=== PATIENT | male | born 1950 | race Native Hawaiian/Other Pacific Islander ===

== ENCOUNTER 2017-06-30 08:30 | Emergency (ER) | payer MEDICARE, BC ==
[2017-06-30] MEDS: HYDROCODONE/APAP 5/325MG TABLET PO ONE (09:21)
--- NOTE | 2017-06-30 09:42 | Emergency Department Record ---
History of Present Illness - General Chief complaint: Pain Stated complaint: LEFT KNEE PAIN/CHRONIC Time Seen by Provider: 06/30/17 08:59 Source: Patient Mode of Arrival: Ambulatory Limitations: No limitations - History of Present Illness Initial comments: pt has pain and swelling of knee and pain in calf and thigh that kept him awake all night. he was extra active over the weekend and has known oa of knee MD Complaint: Extremity pain, Joint pain, Joint swelling Onset/Timin -: Days(s) Location: Left, Knee History of Same: Yes Radiation: Proximal, Distal Severity scale (1-10): 7 Quality: Aching, Other Consistency: Constant Associated Symptoms: Denies other symptoms - Related Data Home Medications Medication Instructions Recorded Confirmed Last Taken Indomethacin [Indocin] 50 mg PO TID 06/30/17 06/30/17 06/30/17 Previous Rx's Medication Instructions Recorded Hydrocodone/Acetaminophen [[place] 1 each PO Q6HR #7 tablet 06/30/17 5-325 Tablet] Allergies Allergy/AdvReac Type Severity Reaction Status Date / Time No Known Drug Allergies Allergy Verified 06/30/17 08:44 Travel Screening - Travel/Exposure Within Last 30 Days Have you traveled within the last 30 days?: Yes Location Detail:: [place] - Travel/Exposure Within Last Year Have you traveled outside the [place] in the last year?: No - Additonal Travel Details Have you been exposed to anyone with a communicable illness?: No - Travel Symptoms Symptom Screening: None Review of Systems Reviewed: No additional complaints except as noted below Constitutional: Reports: As per HPI. Denies: Chills, Fever, Malaise, Night sweats, Weakness, Weight change Eyes: Reports: As per HPI. Denies: Eye discharge, Eye pain, Photophobia, Vision change ENT: Reports: As per HPI. Denies: Congestion, Dental pain, Ear pain, Epistaxis , Hearing loss, Throat pain Respiratory: Reports: As per HPI. Denies: Cough, Dyspnea, Hemoptysis, Stridor, Wheezes Cardiovascular: Reports: As per HPI. Denies: Arrhythmia, Chest pain, Dyspnea on exertion, Edema, Murmurs, Orthopnea, Palpitations, Paroxysmal nocturnal dyspnea, Rheumatic Fever, Syncope Endocrine: Reports: As per HPI. Denies: Fatigue, Heat or cold intolerance, Polydipsia, Polyuria Gastrointestinal: Reports: As per HPI. Denies: Abdominal pain, Constipation, Diarrhea, Hematemesis, Hematochezia, Melena, Nausea, Vomiting Genitourinary: Reports: As per HPI. Denies: Dysuria, Frequency, Hematuria, Incontinence, Retention, Testicular pain, Testicular mass, Urgency Musculoskeletal: Reports: As per HPI, Joint swelling. Denies: Arthralgia, Back pain, Gout, Myalgia, Neck pain Skin: Reports: As per HPI. Denies: Bruising, Change in color, Change in hair/ nails, Lesions, Pruritus, Rash Neurological: Reports: As per HPI. Denies: Abnormal gait, Confusion, Headache, Numbness, Paresthesias, Seizure, Tingling, Tremors, Vertigo, Weakness Psychiatric: Reports: As per HPI. Denies: Anxiety, Auditory hallucinations, Depression, Homicidal thoughts, Suicidal thoughts, Visual hallucinations Hematological/Lymphatic: Reports: As per HPI. 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 Castorena; - NEURO Hx Neuro Disorders: No - GI Hx GI Disorders: Yes Hx of Polyps: Yes Comment:: sensitive to high fat foods; esophageal spasm?? - Hx Genitourinary Disorders: No - ENDOCRINE Hx Endocrine Disorders: No - MUSCULOSKELETAL Hx Musculoskeletal Disorders: Yes Hx Arthritis: Yes (oa) Hx Gout: Yes Hx Osteoporosis: Yes - PSYCH Hx Psych Problems: No - HEMATOLOGY/ONCOLOGY Hx Hematology/Oncology Disorders: No Family Medical History Any Significant Family History?: No Hx Cancer: Mother *Cancer Comment: bladder/colon/stomach Hx Heart Disease: Father, Grandparents *Heart Comment: paternal Hx HTN: Father Hx Stroke: Father Physical Exam - General General Appearance: Alert, Oriented x3, Cooperative, Mild distress - Head Head exam: Normal inspection - Eye Eye exam: Normal appearance, PERRL, EOMI Pupils: Normal accommodation - ENT ENT exam: Normal exam, Mucous membranes moist, Normal external ear exam, Normal orophraynx Ear exam: Normal external inspection. negative: External canal tenderness Nasal Exam: Normal inspection. negative: Discharge, Sinus tenderness Mouth exam: Normal external inspection, Tongue normal Teeth exam: Normal inspection. negative: Dental caries Throat exam: Normal inspection. negative: Tonsillar erythema, Tonsillar exudate - Neck Neck exam: Normal inspection, Full ROM. negative: Tenderness - Respiratory Respiratory exam: Normal lung sounds bilaterally. negative: Respiratory distress - Cardiovascular Cardiovascular Exam: Regular rate, Normal rhythm, Normal heart sounds - GI/Abdominal GI/Abdominal exam: Soft, Normal bowel sounds. negative: Tenderness - Rectal Rectal exam: Deferred - exam: Deferred - Extremities Extremities exam: Calf tenderness, Joint swelling, Normal capillary refill, Tenderness. negative: Full ROM - Back Back exam: Reports: Normal inspection, Full ROM. Denies: Muscle spasm, Rash noted, Tenderness - Neurological Neurological exam: Alert, CN II-XII intact, Normal gait, Oriented X3 - Psychiatric Psychiatric exam: Normal affect, Normal mood - Skin Skin exam: Dry, Intact, Normal color, Warm Course Vital Signs 06/30/17 08:32 Temperature 97.6 F Pulse Rate 60 Respiratory 16 Rate Blood Pressure 137/87 Pulse Ox 97 - Reevaluation(s) Reevaluation #1: 06/30/17 10:53 pt feels better Disposition Disposition: Discharge Clinical Impression: Knee joint effusion Qualifiers: Laterality: left Qualified Code(s): M25.462 - Effusion, left knee Disposition: Home, Self-Care Condition: (1) Good Instructions: Swollen Knee Joint (ED), Osteoarthritis (ED) Additional Instructions: follow up with dr diaz. return sooner if worse. elevate and ice Prescriptions: Hydrocodone/Acetaminophen [[place] 5-325 Tablet] 1 each PO Q6HR #7 tablet Referrals: GORGE DIAZ [DOCTOR OF OSTEOPATH] - [facility] [Provider Group] Forms: Patient Portal Access Quality - Quality Measures Quality Measures: N/A - Blood Pressure Screening Does Patient Have Any of the Following: No Blood Pressure Classification: Pre-Hypertensive BP Reading Systolic Measurement: 137 Diastolic Measurement: 87 Screening for High Blood Pressure: < Pre-Hypertensive BP, F/U Documented > [ G8950] Pre-Hypertensive Follow-up Interventions: Follow-up with rescreen every year.
--- NOTE | 2017-06-30 15:18 | RADIOLOGY REPORT ---
EXAM: LEFT KNEE HISTORY: KNEE PAIN. TECHNIQUE: Four views of the left knee were obtained. Comparison: None. Encounter: Initial. FINDINGS: Osteopenia. Negative for fracture or dislocation. Mild to moderate tricompartmental degenerative change. Chondrocalcinosis. Probable small joint effusion with mild prepatellar edema. IMPRESSION: OSTEOPENIA WITH TRICOMPARTMENTAL DEGENERATIVE CHANGE AND CHONDROCALCINOSIS. MILD PREPATELLAR EDEMA. SMALL JOINT EFFUSION. JOB NUMBER: [id number] MTDD
--- NOTE | 2017-06-30 15:26 | US VENOUS DOPPLER REPORT ---
EXAM: LEFT LOWER EXTREMITY DUPLEX VENOUS DOPPLER ULTRASOUND HISTORY: PAIN AND SWELLING. TECHNIQUE: Transverse and longitudinal sonographic images of the left lower extremity deep venous system were obtained. Doppler and spectral analysis with color flow was utilized. Comparison: Plain films from today's date. FINDINGS: Imaging shows no visible areas of thrombus formation. Normal compression and augmentation. 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 Doppler and spectral analysis with color flow shows normal waveforms. IMPRESSION: 1. NEGATIVE FOR DVT. 2. PROBABLE POPLITEAL CYST. JOB NUMBER: [id number] [facility]
== END 2017-06-30 11:09 | disposition home or self-care (01) ==
LOC: ER 08:30
DX: M25.462 Effusion, left knee (principal); M25.562 Pain in left knee; M79.652 Pain in left thigh; M79.662 Pain in left lower leg; M17.12 Unilateral primary osteoarthritis, left knee; Z87.891 Personal history of nicotine dependence
CPT/HCPCS: 99283

== ENCOUNTER 2018-03-20 06:38 | Emergency (ER) | payer BC, MEDICARE ==
--- NOTE | 2018-03-20 06:52 | Emergency Department Record ---
History of Present Illness - General Stated complaint: DENTAL PAIN Time Seen by Provider: 03/20/18 06:50 Source: Patient Mode of Arrival: Ambulatory Limitations: No limitations - History of Present Illness Initial comments: 67 yo male presents to ED for evaluation of gingival swelling and pain following a recent dental procedure. Patient reports that the pain symptoms began over the past 1-2 days following a temporary cap that was placed by his dentist last week. Patient denies fevers, chills, or drainage from the dental site. MD complaint: Tooth pain Onset/Timin -: Days(s) Location: Tooth # 1 - Dental pain s/p temporary cap placement Severity: Moderate Quality: Aching Consistency: Constant Improves with: None Worsens with: None Context-Epistaxis: Recent surgery/procedure - Related Data Previous Rx's Medication Instructions Recorded Hydrocodone/Acetaminophen [[place] 1 each PO Q6HR #7 tablet 06/30/17 5-325 Tablet] Clindamycin HCl [Cleocin HCl] 300 mg PO QID #28 capsule 03/20/18 Allergies Allergy/AdvReac Type Severity Reaction Status Date / Time No Known Drug Allergies Allergy Verified 06/30/17 08:44 Review of Systems Constitutional: Denies: Chills, Fever, Malaise, Night sweats Eyes: Denies: Eye discharge, Eye pain ENT: Reports: Dental pain. Denies: Congestion, Ear pain, Epistaxis Respiratory: Denies: Cough, Dyspnea Cardiovascular: Denies: Chest pain, Dyspnea on exertion Endocrine: Denies: Fatigue, Heat or cold intolerance Gastrointestinal: Denies: Abdominal pain, Nausea, Vomiting Genitourinary: Denies: Incontinence, Retention Musculoskeletal: Denies: Arthralgia, Back pain, Gout, Joint swelling Skin: Denies: Bruising, Change in color Neurological: Denies: Abnormal gait, Confusion, Headache, Seizure Psychiatric: Denies: Anxiety Hematological/Lymphatic: Denies: Anemia, Blood Clots Past Medical History - SOCIAL HISTORY Smoking Status: Former smoker Drug Use: None - RESPIRATORY Hx Respiratory Disorders: Yes Hx COPD: Yes Hx Dyspnea: Yes Hx Pneumonia: Yes Comment:: quit smoking 1 month ago; - CARDIOVASCULAR Hx Cardio Disorders: Yes Hx Cardiac Cath: Yes (1999) Hx Irregular Heartbeat: Yes (had arrythmia 2 times past 20 years; no chronic issure) 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 Castorena; - NEURO Hx Neuro Disorders: No - GI Hx GI Disorders: Yes Hx of Polyps: Yes Comment:: sensitive to high fat foods; esophageal spasm?? - Hx Genitourinary Disorders: No - ENDOCRINE Hx Endocrine Disorders: No - MUSCULOSKELETAL Hx Musculoskeletal Disorders: Yes Hx Arthritis: Yes (oa) Hx Gout: Yes Hx Osteoporosis: Yes - PSYCH Hx Psych Problems: No - HEMATOLOGY/ONCOLOGY Hx Hematology/Oncology Disorders: No Family Medical History Hx Cancer: Mother *Cancer Comment: bladder/colon/stomach Hx Heart Disease: Father, Grandparents *Heart Comment: paternal Hx HTN: Father Hx Stroke: Father Physical Exam - General General Appearance: Alert, Oriented x3, Cooperative, Mild distress Limitations: No limitations - Head Head exam: Atraumatic, Normocephalic, Normal inspection Head exam detail: negative: Abrasion, Contusion, Garrett's sign, General tenderness, Hematoma, Laceration - Eye Eye exam: Normal appearance. negative: Conjunctival injection, Periorbital swelling, Periorbital tenderness, Scleral icterus - ENT Ear exam: negative: Auricular hematoma, Auricular trauma Nasal Exam: negative: Active bleeding, Discharge, Dried blood, Foreign body Mouth exam: negative: Drooling, Laceration, Muffled voice, Tongue elevation Teeth exam: Dental caries, Dental tenderness #, Gingival enlargement Throat exam: negative: Tonsillar erythema, Tonsillomegaly, R peritonsillar mass , L peritonsillar mass Image of Mouth/Teeth: 1 - Gingival inflammation and swelling, no abscess is present on examination. - Neck Neck exam: Normal inspection. negative: Meningismus, Tenderness - Respiratory Respiratory exam: Normal lung sounds bilaterally. negative: Rales, Respiratory distress, Rhonchi, Stridor - Cardiovascular Cardiovascular Exam: Regular rate, Normal rhythm, Normal heart sounds - GI/Abdominal GI/Abdominal exam: Soft. negative: Rebound, Rigid, Tenderness - Rectal Rectal exam: Deferred - exam: Deferred - Extremities Extremities exam: Normal inspection. negative: Calf tenderness, Pedal edema, Tenderness - Back Back exam: Denies: CVA tenderness (R), CVA tenderness (L) - Neurological Neurological exam: Alert, Normal gait, Oriented X3 - Psychiatric Psychiatric exam: Normal affect, Normal mood - Skin Skin exam: Normal color. negative: Abrasion Type of lesion: negative: abrasion Course Vital Signs 03/20/18 06:44 Temperature 98.1 F Pulse Rate [ 70 Pulse Ox Probe] Respiratory 20 Rate Blood Pressure 143/99 [Left Arm] Pulse Ox 96 - Reevaluation(s) Reevaluation #1: 03/20/18 06:55 History and physical examination appear c/w recent dental procedure and likely apical abscess Will initiate treatment with clindamycin as directed Patient was instructed to follow-up with his dentist in 1-3 days as directed. Disposition Disposition: Discharge Clinical Impression: Dental infection Disposition: Home, Self-Care Condition: (2) Stable Additional Instructions: Return to ED if your symptoms worsen or if you have any concerns. Clindamycin as directed. Follow-up with your Dentist in 1-3 days as directed. Prescriptions: Clindamycin HCl [Cleocin HCl] 300 mg PO QID #28 capsule Time of Disposition: 06:51 Quality - Quality Measures Quality Measures: N/A - Blood Pressure Screening Does Patient Have Any of the Following: Active Dx of HTN Blood Pressure Classification: Hypertensive Reading Systolic Measurement: 143 Diastolic Measurement: 99 Screening for High Blood Pressure: Patient Exclusion, Hx of HTN [G9744]
[2018-03-20] MEDS ORDERED: CLINDAMYCIN 150 MG CAP PO ONE (06:56)
== END 2018-03-20 07:07 | disposition home or self-care (01) ==
LOC: ER 06:38
DX: K04.7 Periapical abscess without sinus (principal); Z87.891 Personal history of nicotine dependence
CPT/HCPCS: 99282

== ENCOUNTER 2019-01-08 08:30 | Day surgery (SDC) | payer MEDICARE, BC ==
[2019-01-08] MEDS ORDERED: PROPOFOL 10 MG/ML VIAL IV ONE (08:31)
[2019-01-08] MEDS ORDERED: LIDOCAINE 2% MDV (20MG/ML) 20ML VIAL IV ONE (08:31)
--- NOTE | 2019-01-10 08:40 | Operative Note ---
OPERATION: COLONOSCOPY to the cecum with cold snare polypectomy x2. INDICATION: History of adenomatous polyps. The patient returns at this time for surveillance. ANESTHESIA: Intravenous sedation was administered by the department of anesthesiology and included Diprivan titrated to effect. PROCEDURE: Following informed consent from this alert individual including a discussion of the risks and benefits of the procedure and an opportunity for the patient to ask questions, the patient was in the left lateral decubitus position. A digital rectal examination was performed. No abnormalities were noted. Following this, the Olympus [id number] video colonoscope was inserted into the rectum without resistance. The rectal mucosa had a normal appearance with normal folds and distensibility. The colonoscope was advanced up through the colon to the level of the cecum without much difficulty. Throughout the bowel the mucosa appeared normal, the folds were normal, and the bowel was fairly well distensible. The cecum was defined by noting the appendiceal orifice and ileocecal valve. The terminal ileum was briefly cannulated and found to be unremarkable. There was some retained debris noted at the cecal base most of which could be washed away with water wash. As best visualized, there were no polyps noted. From this point, the colonoscope was then withdrawn. No changes were appreciated until the sigmoid colon was reached. In the sigmoid colon, there was a diminutive 4 mm polyp noted along a fold which was removed with cold snare polypectomy. There was a second polyp noted in the mid rectum also measuring approximately 4 mm in size likewise removed with cold snare polypectomy and suctioned through the colonoscope into a collection trap. No other changes appreciated. Retroflexion in the rectum was endoscopically normal. The endoscope was straightened and removed. The patient tolerated the procedure well and was returned to the recovery area in stable condition. IMPRESSION: A 4 mm sigmoid polyp and 4 mm rectal polyp each removed with a cold snare polypectomy. No other changes appreciated. RECOMMENDATIONS: The patient was advised he should receive a copy of his pathology report at home in the next 2-3 weeks. If not, he was asked to call my office to review the results of testing today. Further recommendations will be forthcoming pending those results. Followup will also be with Dr. Sun. As always, thank you for allowing me to participate in the care of your patient. MARY ANN
== END 2019-01-08 10:25 | disposition home or self-care (01) ==
LOC: HOP 08:30
PROVIDERS: ATTEND Internal Medicine Gastroenterology
DX: Z12.11 Encounter for screening for malignant neoplasm of colon (principal); Z86.010 Personal history of colon polyps; K63.5 Polyp of colon; D12.8 Benign neoplasm of rectum; E78.00 Pure hypercholesterolemia, unspecified; J44.9 Chronic obstructive pulmonary disease, unspecified; M10.9 Gout, unspecified